=== PATIENT | male | born 1990 | race American Indian/Alaskan Native ===

== ENCOUNTER 2021-08-27 17:48 | Emergency (ER) | payer SELFPAY ==
--- NOTE | 2021-08-27 18:41 | Emergency Department Report ---
HPI - General Chief Complaint: Chest Pain Time Seen by Provider: 08/27/21 18:19 - HPI HPI: Room 29 The patient is a 30-year-old male present with a chief complaint of syncope. Patient states he developed nausea and tingling in bilateral upper extremities yesterday but his symptoms were mild. Patient denies vomiting or diarrhea. The patient states today he was at rest sitting down watching television when he got up to go to the bathroom the patient states he developed blurred vision began feeling dizzy, had palpitations with chest pressure and shortness of breath. The patient states as he walked into the bathroom and was standing he had a syn copal episode. Patient states his next memory was waking up on the floor on the toilet. The patient states he had difficulty standing up because his legs felt weak so he stumbled to another room and became diaphoretic. Patient told his girlfriend needs to go to the hospital. While in the car patient states she began to cool off and feel better. Patient currently denies chest pain but states he has a sensation in his chest that is difficult to describe and he still has tingling in bilateral upper extremities. Patient denies any previous episodes of the same. Patient states his father required an aortic valve replacement in his 40s ED Past Medical Hx - Past Medical History Previous Medical History?: No - Surgical History Past Surgical History?: No - Family History Family history: no significant - Social History Substance Use Type: Alcohol (Occasional), Marijuana ED Review of Systems ROS: Stated complaint: CHEST PAIN,FEELING FAINT,NUMBNESS IN HANDS Other details as noted in HPI Constitutional: diaphoresis Eyes: vision change ENT: denies: throat pain Respiratory: shortness of breath Cardiovascular: chest pain, palpitations Endocrine: no symptoms reported Gastrointestinal: nausea. denies: vomiting, diarrhea Genitourinary: denies: dysuria Musculoskeletal: denies: back pain Neurological: paresthesias Physical Exam - Physical Exam Vital Signs: Vital Signs 08/27/21 18:08 Temperature 98 F Pulse Rate 55 L Respiratory 14 Rate Blood Pressure 137/59 [Left] O2 Sat by Pulse 100 Oximetry Physical Exam: GENERAL: The patient is well-developed well-nourished male lying on chair not appearing to be in acute distress. [] HEENT: Normocephalic. Atraumatic. Extraocular motions are intact. Patient has moist mucous membranes. NECK: Supple. Trachea midline CHEST/LUNGS: Clear to auscultation. There is no respiratory distress noted. 2+ radial pulses bilaterally HEART/CARDIOVASCULAR: Regular. There is no tachycardia. There is no gallop rub or murmur. ABDOMEN: Abdomen is soft, nontender. Patient has normal bowel sounds. There is no abdominal distention. SKIN: There is no rash. There is no edema. There is no diaphoresis. NEURO: The patient is awake, alert, and oriented. The patient is cooperative. The patient has no focal neurologic deficits. The patient has normal speech. Cranial nerves II through XII grossly intact MUSCULOSKELETAL: There is no evidence of acute injury. ED Course Vital Signs 08/27/21 18:08 Temperature 98 F Pulse Rate 55 L Respiratory 14 Rate Blood Pressure 137/59 [Left] O2 Sat by Pulse 100 Oximetry ED Medical Decision Making - Lab Data Result diagrams: 08/27/21 19:00 08/27/21 19:00 Laboratory Tests 08/27/21 08/27/21 08/27/21 19:00 19:00 19:00 WBC 7.0 RBC 4.41 Hgb 13.7 Hct 39.6 MCV 90 MCH 31 MCHC 35 H RDW 14.2 Plt Count 201 Lymph % (Auto) 32.6 [place] % (Auto) 12.2 H Eos % (Auto) 4.5 H Baso % (Auto) 0.8 Lymph # (Auto) 2.3 [place] # (Auto) 0.9 H Eos # (Auto) 0.3 Baso # (Auto) 0.1 Seg Neutrophils % 49.9 Seg Neutrophils # 3.5 D-Dimer 135.00 Sodium 140 Potassium 4.2 Chloride 101.7 Carbon Dioxide 26 Anion Gap 17 BUN 17 Creatinine 1.1 Estimated GFR > 60 BUN/Creatinine Ratio 15 Glucose 103 H Calcium 9.9 Magnesium 2.20 Total Creatine Kinase 136 CK-MB (CK-2) 1.2 CK-MB (CK-2) Rel Index 0.8 Troponin T < 0.010 NT-Pro-B Natriuret Pep 24.34 TSH Free T4 Urine Opiates Screen Urine Methadone Screen Ur Barbiturates Screen Ur Phencyclidine Scrn Ur Amphetamines Screen U Benzodiazepines Scrn Urine Cocaine Screen 08/27/21 08/27/21 19:00 Unknown WBC RBC Hgb Hct MCV MCH MCHC RDW Plt Count Lymph % (Auto) [place] % (Auto) Eos % (Auto) Baso % (Auto) Lymph # (Auto) [place] # (Auto) Eos # (Auto) Baso # (Auto) Seg Neutrophils % Seg Neutrophils # D-Dimer Sodium Potassium Chloride Carbon Dioxide Anion Gap BUN Creatinine Estimated GFR BUN/Creatinine Ratio Glucose Calcium Magnesium Total Creatine Kinase CK-MB (CK-2) CK-MB (CK-2) Rel Index Troponin T NT-Pro-B Natriuret Pep TSH 1.560 Free T4 1.24 Urine Opiates Screen Negative Urine Methadone Screen Negative Ur Barbiturates Screen Negative Ur Phencyclidine Scrn Negative Ur Amphetamines Screen Negative U Benzodiazepines Scrn Negative Urine Cocaine Screen Negative - EKG Data -: EKG Interpreted by Me EKG shows normal: sinus rhythm Rate: normal - EKG Data When compared to previous EKG there are: previous EKG unavailable Interpretation: nonspecific ST-T wave mohini (Early repolarization) - Radiology Data Radiology results: report reviewed (Chest x-ray, CT head), image reviewed (Chest x-ray, CT head) interpreted by me: Chest x-ray-no definite focal infiltrates, no pneumothorax [address] [address] XRay Report Signed Patient: LILLY MCCAIN MR#: [id number] : 1990 Acct:[id number] Age/Sex: 30 / M ADM Date: 08/27/21 Loc: ED Attending Dr: Ordering Physician: SARAH ZAMBRANO MD Date of Service: 08/27/21 Procedure(s): XR chest routine 2V Accession Number(s): [id number] cc: SARAH ZAMBRANO MD Fluoro Time In Minutes: CHEST 2 VIEWS INDICATION / CLINICAL INFORMATION: chest pain, palpitations, syncope. COMPARISON: None available. FINDINGS: SUPPORT DEVICES: None. HEART / MEDIASTINUM: No significant abnormality. LUNGS / PLEURA: No significant pulmonary or pleural abnormality. No pneumothorax. ADDITIONAL FINDINGS: No significant additional findings. IMPRESSION: 1. No acute findings. Signer Name: Jose Benedict MD Signed: 08/27/2021 8:54 PM Workstation Name: [id number] Transcribed By: DB Dictated By: JOSE BENEDICT MD Electronically Authenticated By: JOSE BENEDICT MD Signed Date/Time: 08/27/212053 DD/ 53 TD/TT: Print Cancel [facility] [address] [place] [address] Cat Scan Report Signed Patient: LILLY MCCAIN MR#: [id number] : 1990 Acct:[id number] Age/Sex: 30 / M ADM Date: 08/27/21 Loc: ED Attending Dr: Ordering Physician: SARAH ZAMBRANO MD Date of Service: 08/27/21 Procedure(s): CT head/brain wo con Accession Number(s): [id number] cc: SARAH ZAMBRANO MD CT head/brain wo con INDICATION / CLINICAL INFORMATION: 30 years Male; Syncope. TECHNIQUE: Routine CT head without contrast. All CT scans at this location are performed using CT dose reduction for ALARA by means of automated exposure control. COMPARISON: None. FINDINGS: BRAIN / INTRACRANIAL CONTENTS: The brain demonstrate appropriate attenuation. The ventricular system is within normal limits in size and configuration. There is no clear CT evidence of acute in tracranial hemorrhage or significant mass effect. ORBITS: No significant abnormality of visualized orbits. SINUSES / MASTOIDS: There is minimal mucosal thickening along the posterior left ethmoid air cells. CRANIOCERVICAL JUNCTION: No significant abnormality. ADDITIONAL FINDINGS: None. IMPRESSION: 1. There is no CT evidence of acute intracranial process. Signer Name: Jared Platt MD Signed: 08/11 7:08 PM Workstation Name: [id number] Transcribed By: MR Dictated By: Jared Platt MD Electronically Authenticated By: Jared Platt MD Signed Date/Time: 08/27/211907 DD/ 05 TD/TT: Print - Differential Diagnosis Dysrhythmia, PE, dehydration, orthostasis, ACS, symptomatic anemia Critical care attestation.: If time is entered above; I have spent that time in minutes in the direct care of this critically ill patient, excluding procedure time. ED Disposition Clinical Impression: Syncope, Palpitations, Chest pain Disposition: ADMITTED INPATIENT Is pt being admited?: Yes Does the pt Need Aspirin: Yes Condition: Fair Instructions: Nonspecific Chest Pain, Adult, Syncope (ED) Time of Disposition: 21:27 (Hospitalist notified (Dr Bray))
[2021-08-27 19:10] LABS: Basophils # (Auto) 0.1 K/mm3 (0.0-0.1); Basophils % (Auto) 0.8 % (0.0-1.8); Eosinophils # (Auto) 0.3 K/mm3 (0.0-0.4); Eosinophils % (Auto) 4.5 % (0.0-4.3); Hematocrit 39.6 % (35.5-45.6); Hemoglobin 13.7 gm/dl (11.8-15.2); Lymphocytes # (Auto) 2.3 K/mm3 (1.2-5.4); Lymphocytes % (Auto) 32.6 % (13.4-35.0); Mean Corpuscular HGB Conc 35 % (32-34); Mean Corpuscular Volume 90 fl (84-94); Monocytes # (Auto) 0.9 K/mm3 (0.0-0.8); Monocytes % (Auto) 12.2 % (0.0-7.3); Platelet Count 201 K/mm3 (140-440); Red Blood Count 4.41 M/mm3 (3.65-5.03); Red Cell Distribution Width 14.2 % (13.2-15.2)
--- NOTE | 2021-08-27 19:12 | Cat Scan Report ---
CT head/brain wo con INDICATION / CLINICAL INFORMATION: 30 years Male; Syncope. TECHNIQUE: Routine CT head without contrast. All CT scans at this location are performed using CT dos e reduction for ALARA by means of automated exposure control. COMPARISON: None. FINDINGS: BRAIN / INTRACRANIAL CONTENTS: The brain demonstrate appropriate attenuation. The ventricular system is within normal limits in size and configuration. There is no clear CT evidence of acute intracrania l hemorrhage or significant mass effect. ORBITS: No significant abnormality of visualized orbits. SINUSES / MASTOIDS: There is minimal mucosal thickening along the posterior left ethmoid air cells. CRANIOCERVICAL JUNCTION: No significant abnormality. ADDITIONAL FINDINGS: None. IMPRESSION: 1. There is no CT evidence of acute intracranial process. Signer Name: Jared Platt MD Signed: 08/27/2021 7:08 PM Workstation Name: [id number]
[2021-08-27 19:18] VITALS: BP 104/55
[2021-08-27 20:09] LABS: Creatine Kinase MB 1.2 ng/mL (0.0-4.0)
[2021-08-27 20:11] LABS: BUN/Creatinine Ratio 15; Blood Urea Nitrogen 17 mg/dL (9-20); Calcium 9.9 mg/dL (8.4-10.2); Hemolysis Index 11
[2021-08-27 20:20] LABS: Free T4 (Free Thyroxine) 1.24 ng/dL (0.76-1.46)
[2021-08-27 20:44] LABS: Amphetamine Screen,Urine Negative; Benzodiazepines Screen,Urine Negative; Cocaine Screen,Urine Negative; Methadone Screen,Urine Negative; Opiate Screen,Urine Negative
--- NOTE | 2021-08-27 20:59 | XRay Report ---
CHEST 2 VIEWS INDICATION / CLINICAL INFORMATION: chest pain, palpitations, syncope. COMPARISON: None available. FINDINGS: SUPPORT DEVICES: None. HEART / MEDIASTINUM: No significant abnormality. LUNGS / PLEURA: No significant pulmonary or pleural abnormality. No pneumothorax. ADDITIONAL FINDINGS: No significant additional findings. IMPRESSION: 1. No acute findings. Signer Name: Jose Benedict MD Signed: 08/27/2021 8:54 PM Workstation Name: [id number]
[2021-08-27 21:29] LABS: Cannabinoid Screen,Urine Positive
[2021-08-27] MEDS ORDERED: MAGNESIUM HYDROXIDE (MOM) ORAL LIQD UDC PO PRN (22:33)
[2021-08-27] MEDS ORDERED: ONDANSETRON 4 MG/2 ML INJ IV PRN ×2 (22:33→23:41)
[2021-08-27] MEDS ORDERED: ACETAMINOPHEN 325 MG TAB PO PRN ×2 (22:33→23:41)
[2021-08-27] MEDS ORDERED: MORPHINE 4 MG/1 ML INJ IV PRN ×2 (22:33→23:41)
[2021-08-27] MEDS ORDERED: MORPHINE 2 MG/1 ML INJ IV PRN ×2 (22:33→23:41)
[2021-08-27] MEDS ORDERED: SODIUM CHLORIDE 0.9% 1000 ML 1,000 ML IV SCH (22:45)
--- NOTE | 2021-08-27 22:46 | History and Physical Report ---
History of Present Illness Date of examination: 08/27/21 Date of admission: 08/27/2021 Chief complaint: Syncope History of present illness: 30-year-old -[place] male with no significant past medical history presents to the emergency room today with a chief complaint of syncope. Syncope was said to have acquired earlier today. He had some nausea but no vomiting, no diarrhea and no abdominal pain. He also indicates that he has had some mild tingling in his lower extremities during this episode. Patient states that he was watching TV and later on got up to use the restroom when he suddenly felt dizzy having palpitations with some mild chest pressure shortness of breath when he had a syncopal episode. He denies having this type of episode in the past. Denies any headache and denies any diaphoresis. He had difficulty getting up after the syncopal episode and became diaphoretic. Patient denies any sick contacts and no recent travel. Denies any contact with anyone with COVID-19. He admits that he has not been vaccinated against COVID- 19. Work-up in the emergency room today EKG reveals sinus bradycardia. CT scan of the head and chest x-ray were unremarkable. Past History Past Medical History: No medical history Past Surgical History: No surgical history Social history: no significant social history Family history: other (Heart disease in father with aortic valve replacement in his 40s.) Medications and Allergies Allergies Allergy/AdvReac Type Severity Reaction Status Date / Time ibuprofen AdvReac Angioedema Verified 08/27/21 18:10 Active Meds: Active Medications Acetaminophen (Acetaminophen 325 Mg Tab) 650 mg PO Q4H PRN PRN Reason: Pain MILD(1-3)/Fever >100.5/CAZARES Sodium Chloride (Nacl 0.9% 1000 Ml) 1,000 mls @ 75 mls/hr IV DIRECT DENZEL Magnesium Hydroxide (Magnesium Hydroxide (Mom) Oral Liqd Udc) 30 ml PO Q4H PRN PRN Reason: Constipation Morphine Sulfate (Morphine 2 Mg/1 Ml Inj) 2 mg IV Q4H PRN PRN Reason: Pain, Moderate (4-6) Morphine Sulfate (Morphine 4 Mg/1 Ml Inj) 4 mg IV Q4H PRN PRN Reason: Pain , Severe (7-10) Ondansetron HCl (Ondansetron 4 Mg/2 Ml Inj) 4 mg IV Q8H PRN PRN Reason: Nausea And Vomiting Sodium Chloride (Sodium Chloride 0.9% 10 Ml Flush Syringe) 10 ml IV BID DENZEL Sodium Chloride (Sodium Chloride 0.9% 10 Ml Flush Syringe) 10 ml IV PRN PRN PRN Reason: LINE FLUSH Review of Systems Constitutional: no fever, no chills Ears, nose, mouth and throat: no nasal congestion, no sore throat Cardiovascular: chest pain, palpitations, syncope Respiratory: shortness of breath, no cough Gastrointestinal: no abdominal pain, no nausea, no vomiting, no diarrhea Genitourinary Male: no dysuria, no hematuria, no flank pain, no nocturia Musculoskeletal: no neck pain, no low back pain Integumentary: no rash, no pruritis Neurological: no headaches, no confusion Psychiatric: no anxiety, no depression Endocrine: no polyphagia, no polydipsia, no polyuria, no nocturia Exam - Constitutional Vitals: Temp Pulse Resp BP Pulse Ox 98 F 48 L 12 104/55 99 08/27/21 18:08 08/27/21 19:20 08/27/21 19:19 08/27/21 19:19 08/27/21 19:19 General appearance: Present: no acute distress, well-nourished - EENT Eyes: Present: PERRL, EOM intact. Absent: scleral icterus ENT: hearing intact, clear oral mucosa, dentition normal - Neck Neck: Present: supple, normal ROM - Respiratory Respiratory effort: normal Respiratory: bilateral: CTA - Cardiovascular Rhythm: regular Heart Sounds: Present: S1 & S2. Absent: gallop, systolic murmur, diastolic murmur, rub, click - Extremities Extremities: no ischemia, pulses intact, pulses symmetrical, No edema, normal temperature, normal color, Full ROM Peripheral Pulses: within normal limits - Abdominal General gastrointestinal: Present: soft, non-tender, non-distended, normal bowel sounds. Absent: mass - Integumentary Integumentary: Present: clear, warm, dry. Absent: rash - Musculoskeletal Musculoskeletal: strength equal bilaterally - Psychiatric Psychiatric: appropriate mood/affect, intact judgment & insight, memory intact, cooperative - Neurologic Neurologic: CNII-XII intact, no focal deficits, moves all extremities HEART Score - HEART Score Troponin: Troponin T < 0.010 ng/mL (0.00-0.029) 08/27/21 19:00 Results - Labs CBC & Chem 7: 08/27/21 19:00 08/27/21 19:00 Labs: Abnormal lab results 08/27/21 08/27/21 Range/Units 19:00 19:00 MCHC 35 H (32-34) % [place] % (Auto) 12.2 H (0.0-7.3) % Eos % (Auto) 4.5 H (0.0-4.3) % [place] # (Auto) 0.9 H (0.0-0.8) K/mm3 Glucose 103 H (75-100) mg/dL Assessment and Plan - Patient Problems (1) Syncope Current Visit: No Status: Acute Plan to address problem: Etiology unclear. Patient will be closely monitored on telemetry. We will schedule patient for echocardiogram. Consult will be placed to cardiology for evaluation. (2) DVT prophylaxis Current Visit: No Status: Acute (3) Palpitations Current Visit: No Status: Acute (4) Full code status Current Visit: No Status: Acute
--- NOTE | 2021-08-28 04:04 | Event Note ---
Date: 08/28/21 Notified by the ER staff at 4 AM August 28, 2021 that patient left AGAINST MEDICAL ADVICE.
[2021-08-28] MEDS ORDERED: HEPARIN 5,000 UNIT/1 ML VIAL SUB-Q SCH (06:00)
--- NOTE | 2021-08-31 10:12 | Electrocardiograph Report ---
[facility] Test Date: 2021-08-27 Test Time: 18:39:43 Pat Name: LILLY MCCAIN Department: Room: Gender: M Produce Manager: RR : 1990 Requested By: SARAH ZAMBRANO Order Number: [id number] Reading MD: Vadim Kent Measurements Intervals [place] Rate: 46 P: 17 LA: 183 QRS: 50 QRSD: 88 T: 40 QT: 446 QTc: 390 Interpretive Statements Sinus bradycardia ST elev, probable normal early repol pattern No previous ECG available for comparison Electronically Signed On 08-31-2021 10:12:38 EDT by Vadim Kent
== END 2021-08-27 23:37 | disposition admitted as inpatient to this hospital (09) ==
LOC: ED 17:48 → UNDOADMOB 22:33 → 4A 22:33 → ED 23:37
DX: R55 Syncope and collapse (principal); R11.0 Nausea; R42 Dizziness and giddiness; R00.2 Palpitations; R07.89 Other chest pain; Z79.899 Other long term (current) drug therapy
CPT/HCPCS: 36415; 70450; 71046; 80048; 80307; 82550; 82553; 83735; 83880; 84439; 84443; 84484; 85025; 85379; 93005; 99284